=== PATIENT | female | born 1995 | race African-American/Black ===

== ENCOUNTER 2016-07-14 08:40 | Emergency (ER) | payer SELFPAY ==
[~2016-07-14] VITALS: Ht 160 cm; Wt 54.4 kg
[2016-07-14 08:52] VITALS: BP 101/72
[2016-07-14] MEDS ORDERED: ADVIL200 M2 PO (08:56)
--- NOTE | 2016-07-14 08:59 | NUR ---
PT [facility]BUALTE TO BED 8.
--- NOTE | 2016-07-14 09:08 | NUR ---
Patient being evaluated by Dr. Christianson at bedside.
--- NOTE | 2016-07-14 09:10 | NUR ---
20/F presents to ED with complaints of left flank pain starting yesterday. Pt describes pain as sharp, non radiating, constant, 10/10. Pt also reports having fever yesterday and took Advil for it. Patient denies taking any medications today for pain. Patient denies any burning or pain with urination. Patient states "My urine just looks dark." Patient is AOX4, ambulatory with steady gait. Warm blankets provided. Pt placed in position of comfort.
[2016-07-14] MEDS ORDERED: KETOROLAC 60 MG/2 ML VIAL IM ONE ×2 (09:15→09:24)
[2016-07-14 09:55] VITALS: BP 111/62
--- NOTE | 2016-07-14 09:55 | NUR ---
Patient discharged with v/s stable. Written and verbal after care instructions given and explained. Patient alert, oriented and verbalized understanding of instructions. Ambulatory with steady gait. All questions addressed prior to discharge. ID band removed. Patient advised to follow up with PMD. Rx of MOTRIN,CIPRO,SUDAFED given. Patient educated on indication of medication including possible reaction and side effects. Opportunity to ask questions provided and answered.
--- NOTE | 2016-07-14 09:55 | NUR ---
Chart checked and completed. The patient's care was reviewed and supervised by Rose Cameron RN.
== END 2016-07-14 09:55 | disposition home or self-care (01) ==
LOC: MED 08:40
DX: N12 Tubulo-interstitial nephritis, not specified as acute or chronic (principal); R09.81 Nasal congestion
CPT/HCPCS: 81002; 81025; 96372; 99283; J1885